=== PATIENT | male | born 1950 ===

== ENCOUNTER → 2018-05-10 22:24 | Outpatient (REF) | payer MEDICARE, OTHER, SELFPAY ==
[2018-05-10 22:29] LABS: Bacteria Urine None Seen; RBC Urine None Seen (0-5/HPF)
[2018-05-11 00:28] LABS: Add Manual Diff / Slide Review YES; Hematocrit 35.1 % (41-53); Hemoglobin 11.2 g/dL (13.5-17.5); Mean Corpuscular HGB Conc 32.1 % (30-36); Mean Corpuscular Hemoglobin 26.4 PG (26-34); Mean Corpuscular Volume 82.3 fL (80-100); Platelet Count 269 X10^3/uL (150-400); Red Blood Cell Count 4.26 X10^6/uL (4.5-5.9); Red Cell Distribution Width 17.3 % (11.6-14.8); White Blood Cell Count 5.8 X10^3/uL (4.5-11.0)
[2018-05-11 01:46] LABS: Appearance Urine UA CLEAR; Bilirubin Urine UA NEGATIVE (NEGATIVE); Color Urine UA YELLOW; Glucose Urine UA NEGATIVE (Negative); Ketones Urine UA NEGATIVE (NEGATIVE); Leukocyte Esterase Urine UA NEGATIVE (NEGATIVE); Nitrite Urine UA NEGATIVE (Negative); Occult Blood Urine UA NEGATIVE (Negative); Protein Urine UA 1+ (Negative); Urobilinogen Urine UA 0.2 E.U./dL (0.2)
[2018-05-11 02:45] LABS: Alanine Aminotransferase 46 IU/L (21-72); Albumin 4.3 g/dL (3.5-5.0); Albumin Globulin Ratio 1.3 (1.0-2.8); Alkaline Phosphatase 69 U/L (38-126); Aspartate Aminotransferase 34 IU/L (17-59); BUN Creatinine Ratio 20.8 (6-22); Bilirubin Total 0.6 mg/dL (0.2-1.3); Blood Urea Nitrogen 27 mg/dL (9-20); Calcium 9.8 mg/dL (8.4-10.2); Carbon Dioxide 30 mmol/L (22-32); Chloride 101 mmol/L (98-107); Cholesterol 104 mg/dL (140-199); Estimated Glomerular Filt Rate 55.2 mL/min (>60); Globulin 3.4 g/dL (1.7-4.1); Glucose 103 mg/dL (80-110); HDL Cholesterol 41 mg/dL (40-60); HEMOLYSIS < 15 (0-50); LDL Cholesterol Calculated 49 mg/dL (<100); Potassium 4.9 mmol/L (3.4-5.1); Sodium 141 mmol/L (137-145); Total Protein 7.7 g/dL (6.3-8.2); Triglycerides 72 mg/dL (35-150)
[2018-05-11 03:15] LABS: TSH w/ Reflex to FT4 2.82 uIU/mL (0.47-4.68)
[2018-05-11 03:19] LABS: Ferritin 15.1 ng/mL (17.9-464)
[2018-05-11 04:32] LABS: Culture Indicated Urine Cult Not Indicated; WBC Urine 0-1/HPF (0-5/HPF)
[2018-05-11 08:23] LABS: Neutrophils Absolute Manual 3480 /uL (3000-5900); Total Cells Counted 100
[2018-05-11 08:24] LABS: Anisocytosis 2+; Burr Cells 1+; Hypochromasia 2+
[2018-05-11 08:25] LABS: Ovalocytes 1+; Smudge Cells 1+
== END ==
LOC: LAB 22:24
PROVIDERS: Visit Provider Family Medicine
DX: I82.499 Acute embolism and thrombosis of other specified deep vein of unspecified lower extremity (principal); E08.00 Diabetes mellitus due to underlying condition with hyperosmolarity without nonketotic hyperglycemic-hyperosmolar coma (NKHHC); E78.2 Mixed hyperlipidemia; L02.416 Cutaneous abscess of left lower limb; I10 Essential (primary) hypertension
CPT/HCPCS: 36415; 80053; 80061; 81001; 82728; 83036; 84443; 85025